=== PATIENT | male | born 1995 | race African-American/Black ===

== ENCOUNTER 2017-05-05 08:38 | Emergency (ER) | payer BC, OTHER ==
[~2017-05-05] VITALS: Ht 182.9 cm; Wt 69.5 kg
[2017-05-05 08:50] VITALS: BP 123/78
[2017-05-05] MEDS ORDERED: KETOROLAC 30 MG/1 ML ONE (09:18)
[2017-05-05] MEDS ORDERED: KETOROLAC 30 MG/1 ML IM ONE (09:30)
== END 2017-05-05 10:23 | disposition home or self-care (01) ==
LOC: ED 09:13
DX: S32.038A Other fracture of third lumbar vertebra, initial encounter for closed fracture (principal); S63.521A Sprain of radiocarpal joint of right wrist, initial encounter; X58.XXXA Exposure to other specified factors, initial encounter; Y93.89 Activity, other specified; Y92.481 Parking lot as the place of occurrence of the external cause; Y99.9 Unspecified external cause status
CPT/HCPCS: 72110; 73110; 96372; 99284; J1885